=== PATIENT | male | born 1970 | race Caucasian/White ===

== ENCOUNTER 2018-03-30 10:03 | Emergency (ER) | payer MEDICAID ==
[~2018-03-30] VITALS: Ht 180.3 cm; Wt 75.0 kg
[2018-03-30] MEDS ORDERED: ALBU8HFA IH (10:18)
[2018-03-30] MEDS ORDERED: MONT10TA21 PO (11:24)
[2018-03-30] MEDS ORDERED: FLUT44HFA IH (11:24)
[2018-03-30] MEDS ORDERED: ALBUTEROL SULFATE HFA 90 MCG/PUFF 8 GM INHALER IH ONE (11:45)
[2018-03-30 12:35] VITALS: BP 106/80
== END 2018-03-30 13:01 | disposition home or self-care (01) ==
LOC: EMS 10:07
DX: S83.91XA Sprain of unspecified site of right knee, initial encounter (principal); M71.21 Synovial cyst of popliteal space [Baker], right knee; J45.909 Unspecified asthma, uncomplicated; F17.210 Nicotine dependence, cigarettes, uncomplicated; W18.2XXA Fall in (into) shower or empty bathtub, initial encounter; Y93.89 Activity, other specified; Y92.89 Other specified places as the place of occurrence of the external cause; Y99.8 Other external cause status
CPT/HCPCS: 99406; J3535